=== PATIENT | female | born 1940 | race Two or more races ===

== ENCOUNTER 2019-06-21 12:36 | Emergency (ER) | payer OTHER ==
[~2019-06-21] VITALS: Ht 182.9 cm; Wt 89.8 kg
[2019-06-21] MEDS ORDERED: ORPHENADRINE C100 MG PO (21:47)
[2019-06-21] MEDS ORDERED: KETO10TA2 PO (21:47)
== END 2019-06-21 22:03 ==
LOC: ER 12:36
DX: M62.838 Other muscle spasm (principal); M79.604 Pain in right leg

== ENCOUNTER 2021-12-10 18:08 | Emergency (ER) | payer OTHER ==
[~2021-12-10] VITALS: Ht 165.1 cm; Wt 72.6 kg
[~2021-12-10 18:08] MED LIST: KETO10TA2 PO; ORPHENADRINE C100 MG PO
[2021-12-10] MEDS ORDERED: ATORVASTATIN CA20 MG PO (18:35)
[2021-12-10] MEDS ORDERED: FEMARA2.5 MG PO (18:35)
[2021-12-10] MEDS ORDERED: ZESTRIL40 M1 PO (18:35)
[2021-12-10] MEDS ORDERED: CHILDREN'S ASPI81 MG PO (18:36)
[2021-12-10] MEDS ORDERED: AMLODIPINE-OLM1 EAC2 PO (18:36)
[2021-12-10] MEDS ORDERED: TENORMIN50 M1 PO (18:36)
[2021-12-10] MEDS ORDERED: TYLENOL ARTHRI650 MG PO (23:01)
== END 2021-12-11 00:08 | disposition home or self-care (01) ==
LOC: ER 18:08
DX: M54.89 Other dorsalgia (principal)

== ENCOUNTER → 2022-07-19 | Outpatient (CLI) | payer OTHER ==
[~2022-07-19] MED LIST changes: +AMLODIPINE-OLM1 EAC2 PO; +ATORVASTATIN CA20 MG PO; +CHILDREN'S ASPI81 MG PO; +FEMARA2.5 MG PO; +TENORMIN50 M1 PO; +TYLENOL ARTHRI650 MG PO; +ZESTRIL40 M1 PO
== END | disposition home or self-care (01) ==
LOC: NUCLEAR 07:00
PROVIDERS: ATTEND Internal Medicine Hematology & Oncology
DX: C50.912 Malignant neoplasm of unspecified site of left female breast (principal); C79.51 Secondary malignant neoplasm of bone; C79.89 Secondary malignant neoplasm of other specified sites
CPT/HCPCS: 78815; A9552

== ENCOUNTER 2023-03-11 16:23 | Emergency (ER) | payer OTHER ==
[~2023-03-11] VITALS: Ht 177.8 cm; Wt 81.6 kg
[2023-03-11] MEDS ORDERED: DICLOFENAC SODI75 MG PO (20:02)
== END 2023-03-11 20:05 | disposition home or self-care (01) ==
LOC: ER 16:23
DX: M54.59 Other low back pain (principal); I10 Essential (primary) hypertension